=== PATIENT | male | born 1960 | race Two or more races ===

== ENCOUNTER 2017-03-19 08:58 | Day surgery (SDC) | payer OTHER ==
[2017-03-18 15:45] VITALS: BMI 21.2
[2017-03-19] VITALS (8 sets, daily range): BP systolic 116–134; BP diastolic 69–78; PULSE 56–76; RESP 12–20; Ht 188 cm; Wt 80.0 kg
[~2017-03-19] VITALS: Ht 188 cm; Wt 80.0 kg
[~2017-03-19 08:58] MED LIST: CEFAZOLIN 2 GM/50 ML (PMX) 50 ML IVPB SCH; PROPOFOL 200 MG INJ ONE; SOD CHLORIDE 0.9% 1,000 ML IV SCH
[2017-03-19] MEDS ORDERED: ALLO300T2 PO (09:33)
[2017-03-19] MEDS ORDERED: SYN2 PO (09:33)
[2017-03-19] MEDS ORDERED: ATOR20TA38 PO (09:33)
--- NOTE | 2017-03-19 10:13 | RADRPT ---
PROCEDURE: XR Chest. CLINICAL INDICATION: Left inguinal hernia, preop TECHNIQUE: AP view of the chest was obtained. COMPARISON: None. FINDINGS: The cardiomediastinal silhouette is within normal limits. The lungs are clear. No pleural effusion or pneumothorax is identified. There are clips in the lower right neck. IMPRESSION: No evidence of active cardiopulmonary disease. RPTAT: VV .Campos Casey MD, MD Date Time Electronically viewed and signed by .Campos Casey MD, on 03/19/2017 10:13 .O/
[2017-03-19] MEDS ORDERED: POLYMYXIN/BACITRACIN 1L IRRIG ONE (10:29)
[2017-03-19] MEDS ORDERED: BUPIVACAINE 0.25% (MPF) 30 ML INJ ONE (10:29)
[2017-03-19] MEDS ORDERED: CEFAZOLIN 1 GM INJ ONE (11:00)
[2017-03-19] MEDS ORDERED: FENTAnyl 50 MCG/ML VIAL ONE (11:01)
[2017-03-19] MEDS ORDERED: MIDAZOLAM 1 MG/ML 2 ML INJ ONE (11:01)
[2017-03-19] MEDS ORDERED: LIDOCAINE 1% (MDV) 20 ML INJ ONE (11:10)
[2017-03-19] MEDS ORDERED: ONDANSETRON 4 MG INJ ONE (11:17)
[2017-03-19] MEDS ORDERED: DEXAMETHASONE 4 MG/ML 1 ML INJ ONE (11:17)
[2017-03-19] MEDS ORDERED: FAMOTIDINE 20 MG INJ ONE (11:17)
[2017-03-19] MEDS ORDERED: KETOROLAC 30 MG INJ ONE (11:19)
[2017-03-19] MEDS ORDERED: MEPERIDINE 25 MG INJ IV PRN (12:00)
[2017-03-19] MEDS ORDERED: HYDROmorphONE (0.2 MG/ML) 10ML SYG IV PRN ×2 (12:00)
[2017-03-19] MEDS ORDERED: LORAZEPAM 2 MG INJ IV PRN (12:00)
[2017-03-19] MEDS ORDERED: DIPHENHYDRAMINE 50 MG INJ IV PRN (12:00)
[2017-03-19] MEDS ORDERED: HYDROCODONE/APAP (5/325) TAB PO ONE (12:30)
--- NOTE | 2017-03-19 12:38 | RADRPT ---
Vent Rate: 54 bpm RR Interval: 0 msec [place] Interval: 146 msec QRS Duration: 92 msec QT Interval: 462 msec QTC Interval: 438 msec P-R-T [place]: 46 - 56 - 56 degrees Sinus bradycardia Otherwise normal ECG Electronically Signed By: Sean Silverman [id number]
--- NOTE | 2017-03-19 12:53 | OPR ---
DATE OF OPERATION: 03/19/2017 INDICATION: This is a 56-year-old male with an incarcerated left inguinal hernia. He requests surg ical repair. The risks, alternatives, benefits, and personnel were discussed with the patient. The patient expressed understanding and consented to the operation. PREOPERATIVE DIAGNOSIS: Left inguinal hernia. POSTOPERATIVE DIAGNOSIS: Incarcerated left inguinal hernia. OPERATION: 1. Open incarcerated left inguinal hernia repair with large size Ultrapro hernia system mesh. 2. Left ilioinguinal block. SURGEON: Walter Mack MD SPECIMENS: None. COMPLICATIONS: None. ANESTHESIA: General. DESCRIPTION OF PROCEDURE: The patient was taken to the OR and prepped and draped in the usual steri le fashion. A surgical timeout was performed. IV antibiotics were given. A left inguinal oblique incision was made with a 10 blade. Dissection cautery was carried down to the external oblique fasc ia, which was opened with a 15 blade. This incision was extended medial inferiorly and lateral super iorly. The cord structures are encircled with a [place] drain. The incarcerated inguinal hernia was reduced and portion of the disk portion of the UltraPro hernia system mesh. This was secured in place with a running 0 Prolene from the pubic tubercle, along the shelving edge of the inguinal ligament, and superiorly to the internal oblique. This was secured with interrupted 3-0 Vicryl. On lay mesh was secured with a running 0 Prolene from the pubic tubercle, along the shelving edge of th e inguinal ligament. Straps were created and reapproximated to recreate the inguinal ring with inte rrupted 0 Prolene. The [place] mesh was secured to the internal oblique with interrupted 3-0 Vicryl. The external oblique fascia was closed with running 3-0 Vicryl. Moo's was closed with interrupt ed 3-0 Vicryl. Skin was closed using skin robson. Local anesthesia was injected. An ilioinguinal block was performed by identifying the landmarks of the ASIS and then finding a location 2 cm media l and inferior to the ASIS. This area was injected with local anesthesia. Dry dressings were appli ed. Dictated By: WALTER MACK MD SB/NTS Conf#: [id number] DID#: [id number]
== END 2017-03-19 16:00 | disposition home or self-care (01) ==
LOC: SDS 08:58
PROVIDERS: ATTEND Surgery
DX: K40.30 Unilateral inguinal hernia, with obstruction, without gangrene, not specified as recurrent (principal); E03.9 Hypothyroidism, unspecified
CPT/HCPCS: 49507; 71010; 93005; C1781; J0690; J1100; J2175; J2250; J2405; J3010; Z7512; Z7610; J1885